=== PATIENT | female | born 1965 | race African-American/Black ===

== ENCOUNTER 2019-05-14 09:00 | Emergency (ER) | payer MEDICAID ==
[~2019-05-14] VITALS: Ht 157.5 cm; Wt 110.0 kg
[2019-05-14] MEDS ORDERED: SODIUM CHLORIDE 0.9% 1,000 ML IV ONE (10:41)
[2019-05-14] MEDS ORDERED: KETOROLAC 30MG/ML VIAL IV STA (10:41)
[2019-05-14] MEDS ORDERED: SUMATRIPTAN SUCCINATE 6MG/0.5ML VIAL SUBCUT ONE (10:45)
[2019-05-14] MEDS ORDERED: METOCLOPRAMIDE HCL 10MG/2ML VIAL IV ONE (10:45)
[2019-05-14 11:05] LABS: BASOPHILS % 0.6 % (0.0-2.0); EOSINOPHILS % 4.4 % (0.0-5.0); HEMATOCRIT. 37.1 % (36.0-48.0); HEMOGLOBIN. 12.2 g/dL (12.0-16.0); LYMPHOCYTES % 31.2 % (20.0-50.0); MEAN CORPUSCULAR VOLUME 88.5 fL (81.0-99.0); MEAN PLATELET VOLUME 8.1 fl (7.4-10.4); MONOCYTES % 8.9 % (2.0-8.0); NEUTROPHILS % 54.9 % (40.0-76.0); PLATELET 315 x1000/uL (130-400); RED BLOOD CELL COUNT 4.19 mill/uL (4.2-5.4); RED CELL DISTRIBUTION WIDTH 15.7 % (11.6-14.6)
[2019-05-14 11:06] VITALS: BP 101/59
[2019-05-14 11:09] LABS: CLARITY URINE CLEAR (CLEAR); COLOR URINE YELLOW (YELLOW); KETONES URINE NEGATIVE (NEGATIVE); LEUKOCYTE ESTERASE URINE NEGATIVE (NEGATIVE); NITRITE URINE NEGATIVE (NEGATIVE); OCCULT BLOOD URINE NEGATIVE (NEGATIVE); PH URINE 5.5 (4.5-8.0); PROTEIN URINE NEGATIVE (NEGATIVE); SPECIFIC GRAVITY URINE 1.021 (1.005-1.030)
[2019-05-14 11:13] LABS: PROTHROMBIN TIME 10.3 sec (9.6-11.0)
[2019-05-14 11:48] LABS: CHLORIDE 115 mEq/L (98-107)
== END 2019-05-14 11:51 | disposition home or self-care (01) ==
LOC: ER 09:00
DX: G43.909 Migraine, unspecified, not intractable, without status migrainosus (principal); H53.149 Visual discomfort, unspecified; R11.0 Nausea; H53.8 Other visual disturbances; R42 Dizziness and giddiness
CPT/HCPCS: 36415; 80053; 81003; 84484; 85025; 85610; 96372; 96374; 96375; 99283; J1885; J2765; J3030; J7030

== ENCOUNTER 2022-09-07 12:19 | Emergency (ER) | payer MEDICAID ==
[~2022-09-07] VITALS: Ht 152.4 cm; Wt 112.0 kg
[2022-09-07] MEDS ORDERED: NITROGLYCERIN OINT 1GM/INCH UDPKT TD ONE (13:45)
[2022-09-07] MEDS ORDERED: ASPIRIN 81MG TABLET PO ONE (13:45)
[2022-09-07 14:49] VITALS: BP 132/67
[2022-09-07 15:38] LABS: CHLORIDE 109 mEq/L (98-107)
[2022-09-07 15:44] LABS: BASOPHILS % 0.9 % (0.0-2.0); EOSINOPHILS % 4.4 % (0.0-5.0); HEMATOCRIT. 37.3 % (36.0-48.0); HEMOGLOBIN. 12.5 g/dL (12.0-16.0); LYMPHOCYTES % 24.1 % (20.0-50.0); MEAN CORPUSCULAR VOLUME 86.7 fL (81.0-99.0); MEAN PLATELET VOLUME 8.4 fl (7.4-10.4); MONOCYTES % 6.5 % (2.0-8.0); NEUTROPHILS % 64.1 % (40.0-76.0); PLATELET 297 x1000/uL (130-400); RED CELL DISTRIBUTION WIDTH 15.7 % (11.6-14.6)
== END 2022-09-07 17:58 | disposition home or self-care (01) ==
LOC: ER 12:19 → EDBEDREQTM 14:40 → CANBEDREQ 17:47 → ER 17:58
DX: R07.89 Other chest pain (principal); M79.604 Pain in right leg; F17.200 Nicotine dependence, unspecified, uncomplicated; J45.909 Unspecified asthma, uncomplicated
CPT/HCPCS: 36415; 71045; 80053; 83880; 84484; 85025; 85379; 93970; 99285; Z7610